=== PATIENT | female | born 1970 | race Caucasian/White ===

== ENCOUNTER 2023-08-25 13:32 | Outpatient (CLI) | payer OTHER | END 2023-08-25 13:33 | disposition home or self-care (01) | LOC: BICRAD 13:32 | PROVIDERS: ATTEND Preventive Medicine Occupational Medicine | DX: M43.22 Fusion of spine, cervical region (principal); M47.812 Spondylosis without myelopathy or radiculopathy, cervical region; Z98.1 Arthrodesis status | CPT/HCPCS: 72040 ==